=== PATIENT | male | born 1985 | race African-American/Black ===

== ENCOUNTER 2022-09-02 06:37 | Emergency (ER) | payer OTHER, SELFPAY ==
--- NOTE | ~2022-09-02 | XR_ITS ---
EXAMINATION: XR TOES, LEFT CLINICAL INFORMATION: Great toe injury COMPARISON: None available. TECHNIQUE: 3 views of the left toes were obtained. FINDINGS: There are no fractures or dislocations. No joint effusion is identified. No bone, joint or soft tissue abnormality is demonstrated. XR/XR toe LT min 2V IMPRESSION: Unremarkable examination.
[2022-09-02 06:38] VITALS: BP 136/79; PULSE 77; RESP 20; TEMP 36.5; O2SAT 95
[2022-09-02 07:06] VITALS: BMI 32.3
--- NOTE | 2022-09-02 08:51 | ED.WOUNDLAC ---
HPI - Wound/Laceration General Chief Complaint: Wound/Laceration Stated Complaint: toe inj Time Seen by Provider: 09/02/22 08:10 Source: patient Mode of arrival: ambulatory Limitations: no limitations History of Present Illness HPI narrative: 37-year-old male presents to the ER for evaluation a left great toe injury sustained this morning. Patient states he was outside in slide on sandals when he saw a skunk in close proximity. He back paddles and ended up injuring his left great toe, stomach get on the concrete. He states he was at open wound to the distal tip of the toe with bleeding and pain. A dressing was applied he was brought to the ER for further evaluation. Onset (ago): minute(s) Place: home Patient tetanus UTD: No Context: accidental Associated symptoms: pain Treatments prior to arrival: bandage Related Data Allergies Allergy/AdvReac Type Severity Reaction Status Date / Time No Known Allergies Allergy Verified 09/02/22 07:10 Review of Systems Review of Systems: Yes all other systems are reviewed and are negative [facility] Social History Social History Smoked in Last 30 Days: Yes Use of substances other than those prescribed or required for medical reasons: Yes Substance Use Type: Marijuana Advance Directives: No Advance Directives Information Provided: No Physical Exam Vital Signs: Vital Signs: Last Vital Signs Temp 97.7 F 09/02/22 06:38 Pulse 77 09/02/22 06:38 Resp 20 09/02/22 06:38 BP 136/79 09/02/22 06:38 Pulse Ox 95 09/02/22 06:38 O2 Del Method Room Air 09/02/22 06:38 BMI result Body Mass Index 32.3 Appearance: Alert. Oriented X3. No acute distress. HEENT: normal inspection CVS: Normal heart rate and rhythm. Pulses normal. Respiratory: No respiratory distress. Skin: Skin warm and dry. Normal skin color. Normal skin turgor. No rashes. Extremities: left great toe with 1.5 cm avulsion flap to the distal toe not involving the nail, no active bleeding, dried blood present. area is tender to palpation. no swelling or tenderness of the left foot/metatarsals Neuro: Oriented X 3. grossly normal, nonfocal Medical Decision Making Medical Decision Making MDM Narrative: 37-year-old male presents to the ER for evaluation of the left great toe injury after he stubbed it while outside this morning. Exam is consistent with a avulsion of skin that does not involve the nail. It is tender but not bleeding. Neurovascularly intact. He is not diabetic. X-ray today does not show any evidence of fracture. No need for antibiotics. Tetanus shot was provided. Local wound care was provided along with wound care instructions. Steri-Strip was used to reinforce the wound and allow appropriate wound healing. He is stable for discharge home. Differential Diagnosis Differential Diagnoses: The differential diagnosis associated with the presentation includes Avulsion injury, open fracture fall, simple laceration Independent Interpretation I performed an independent interpretation of an: Plain X-Ray Interpretation: No evidence of acute fracture, agree with radiologist read Radiology Impression Discussion of test interpretation with radiology: I have reviewed the radiologist's reading. Radiologist Impression: XR/XR toe LT min 2V IMPRESSION: Unremarkable examination. Prescription Management I considered prescription management with: Pain Medication and Antibiotic Discharge Plan Discharge Clinical Impression: Avulsion of skin Patient Disposition: Home, Self-Care Instructions: Skin Avulsion (ED) Additional Instructions: Your x-ray today was normal. Steri-Strips was used to keep the wound closed. Do not get wet for 24 hours. The Steri-Strips will come off on its own, usually within a week. Use bacitracin to the area to help prevent infection. Allow open to air. If you develop new or worsening symptoms call 911 or come back to the ER for further evaluation. Stand Alone Forms: Work/School Release
== END 2022-09-02 09:49 | disposition home or self-care (01) ==
PROVIDERS: Emergency Provider Student in an Organized Health Care Education/Training Program; PCP Internal Medicine
DX: S91.102A Unspecified open wound of left great toe without damage to nail, initial encounter (principal); W01.0XXA Fall on same level from slipping, tripping and stumbling without subsequent striking against object, initial encounter; Y93.9 Activity, unspecified; Y92.9 Unspecified place or not applicable; Y99.9 Unspecified external cause status
CPT/HCPCS: 12001; 73660; 99283; 99284

== ENCOUNTER 2022-11-16 17:56 | Emergency (ER) | payer OTHER, SELFPAY ==
--- NOTE | 2022-11-16 18:11 | ED_ITS ---
HPI - Dental/Oral General Chief complaint: Dental/Oral Stated complaint: Right side tooth pain Time Seen by Provider: 11/16/22 18:18 Source: patient, RN notes reviewed and old records reviewed Mode of arrival: ambulatory History of Present Illness HPI Narrative: 37 year old male w/no sig PMHx c/o lower right molar pain x6 months worsening today. Denies recent dental procedures, trauma, ear pain, fever, chills, drainage from ear, drainage from tooth. Admits was supposed to have wisdom teeth removed however canceled consultation years ago MD Complaint: tooth pain Related Data Previous Rx's Medication Instructions Recorded amoxicillin 875 mg-potassium 1 tab PO BID 7 days #14 tabs 11/16/22 clavulanate 125 mg tablet Allergies Allergy/AdvReac Type Severity Reaction Status Date / Time shellfish derived Allergy Vomiting Verified 11/16/22 18:12 Review of Systems Review of Systems: Constitutional: No Fever, No Chills ENT/Mouth: +dental pain, No Ear Pain, No Nasal Congestion, No sore throat, No Rhinorrhea, No Swallowing Difficulty Cardiovascular: No Chest Pain, No SOB Respiratory: No Cough Gastrointestinal: No Nausea, No Vomiting, No Abdominal pain Genitourinary: No Dysuria, No Urinary Frequency, No Hematuria, NNo Flank Pain Musculoskeletal: No joint pain, No Myalgias, No Joint Swelling Skin: No Skin Lesions, No rash Neuro: No Weakness Yes all other systems are reviewed and are negative Constitutional: Constitutional: Reports as per [facility] Past Medical History Attestation statement: The following information was validated with the patient. Source: old records reviewed Social History Social History Substance Use Type: Marijuana Advance Directives: No Advance Directives Information Provided: No Physical Exam Vital Signs: Vital Signs: Last Vital Signs Temp 99.3 F 11/16/22 18:12 Pulse 64 11/16/22 18:12 Resp 18 11/16/22 18:12 BP 135/79 11/16/22 18:12 Pulse Ox 98 11/16/22 18:12 O2 Del Method Room Air 11/16/22 18:12 BMI result Body Mass Index 32.5 Const: General: cooperative, healthy appearing and no acute distress Orientation/consciousness: patient oriented x3 Limitations: no limitations HEENT: Other: + bilateral lower posterior molar gingival inflammation greater on right with some tooth overgrowth. Tender to palpation to right. No erythema/fluctuance or induration. No active drainage. Head: Yes normal to inspection and Yes atraumatic Ears: hearing grossly normal bilaterally General nose exam: Normal external nose present Face and sinus: Yes normal facial exam Mouth: tongue normal and no drooling Throat: Yes posterior oropharynx normal, Yes tonsils normal and Yes uvula midline Eyes: General: appearance normal, both eyes and all related structures EOM: EOMs intact bilaterally Neck: Neck: Yes normal visual inspection and Yes no meningeal signs Resp: Effort & Inspection: normal respiratory effort and no respiratory distress Cardio: Rate: regular rate Skin: Rashes: no rashes Wounds: no wounds Neuro: General: patient oriented x3, tone normal and no meningeal signs Cranial nerves: Yes CN's II-XII intact bilaterally Gait exam (Neuro): Normal gait present Extrem: General: Yes normal to inspection Medical Decision Making Medical Decision Making MDM Narrative: 37 year old male w/no sig PMHx c/o lower right molar pain x6 months worsening today. Denies recent dental procedures, trauma, ear pain, fever, chills, drainage from ear, drainage from tooth. On exam VSS, NAD, nontoxic appearing, PE as above with right lower molar gingival ttp and inflammation. No flexion/induration or facial swelling. Patient likely needs dental extraction. Concerns for gingivitis/early dental infection. No evidence of abscess or need for I&D at this time Plan: PO Abx, Dentistry F/u Please refer to course for remaining clinical decision making, interpretation of labs/imaging results, and discussions with consultants and/or family members. Results discussed with patient including worrisome signs and symptoms and strict return precautions, and when to return to the emergency department. They verbalized understanding and feel safe for discharge at this time. Differential Diagnosis Differential Diagnoses: The differential diagnosis associated with the presentation includes As above External Record Review External record reviewed: Inpatient record, Office record, Outpatient record, Prior outpatient labs, Prior outpatient radiology, Primary care record and Outside ED record Tests considered The following testing was considered but not selected: As above Discharge Plan Discharge Clinical Impression: Chronic dental pain Patient Disposition: Home, Self-Care Instructions: Mouth Care (ED) Additional Instructions: Augmentin is an antibiotic please take as prescribed You need to follow up with product development technician If symptoms persist or worsen return to the ED Take Tylenol and Motrin as needed Prescriptions: New amoxicillin-pot clavulanate 875-125 mg tablet 1 tab PO BID 7 Days Qty: 14 0RF Referrals: Erik Briones MD [Physician] - David Lee DMD [Dentist] - Interventions: ED Discharge Assessment Last Done: 11/16/22 18:26 Discharge Date/Time: 11/16/22 18:26
[2022-11-16 18:12] VITALS: BP 135/79; PULSE 64; RESP 18; TEMP 37.4; O2SAT 98; BMI 32.5
== END 2022-11-16 18:26 | disposition home or self-care (01) ==
LOC: HO.ED 18:24
PROVIDERS: Emergency Provider Student in an Organized Health Care Education/Training Program; PCP Internal Medicine
DX: K08.89 Other specified disorders of teeth and supporting structures (principal)
CPT/HCPCS: 99282; 99283

== ENCOUNTER 2024-04-07 18:20 | Emergency (ER) | payer SELFPAY ==
[2024-04-07 18:46] VITALS: BP 158/87; PULSE 93; RESP 18; TEMP 37; O2SAT 98; BMI 37.9
--- NOTE | 2024-04-07 18:47 | ED.GENADULT ---
HPI - General Adult General Chief complaint: General Medical Stated complaint: cyst buttocks Time Seen by Provider: 04/07/24 21:41 History of Present Illness ED Provider: Priya JAIME narrative: The patient is a 38-year-old male who has had an area of painful swelling on his left perineum or buttock for about 3 days. He feels the pain and swelling has been getting worse and he came to the emergency room for evaluation tonight. No definite fevers. No vomiting. He has never had to come to an emergency room for something like this before. He has had lesser abscesses in the past however. Related Data Previous Rx's ?Medication ?Instructions ?Recorded amoxicillin 875 mg-potassium 1 tab PO BID 7 days #14 tabs 11/16/22 clavulanate 125 mg tablet amoxicillin 875 mg-potassium 1 tab PO BID #14 tabs 04/07/24 clavulanate 125 mg tablet ibuprofen 400 mg tablet 400 mg PO Q6H PRN pain #14 tabs 04/07/24 Allergies Allergy/AdvReac Type Severity Reaction Status Date / Time shellfish derived Allergy Vomiting Verified 04/08/24 15:08 Review of Systems Review of Systems: Yes all other systems are reviewed and are negative [facility] Social History Social History Substance Use Type: Marijuana Physical Exam ED Vital Signs: Vital Signs - 24 hr 04/07/24 18:46 04/07/24 22:31 04/07/24 22:50 Temperature 98.6 F 98.6 F 98.6 F Pulse Rate 93 91 91 Respiratory Rate 18 16 16 Blood Pressure 158/87 H 154/67 H 154/67 H Pulse Oximetry 98 97 97 Oxygen Delivery Method Room Air Room Air Room Air BMI result Body Mass Index 37.9 Const Other: the patient is a 38-year-old man who is awake and alert, pleasant cooperative. He does not seem acutely ill. Orientation/consciousness: patient oriented x3 HENMT Other: Face is symmetrical, mucous membranes moist. Eyes General: appearance normal, both eyes and all related structures Resp Effort & Inspection: normal respiratory effort Skin Other: there is an area of swelling and tenderness to the left of the perineal raphe. Neuro General: patient oriented x3 Cranial nerves: Yes CN's II-XII intact bilaterally Cognition (Neuro): normal cognition Motor exam (neuro): 5/5 motor strength present throughout Extrem Other: moving extremities normally Course Course Course Narrative: This is a rapid medical exam performed by Amanda Bennett NP: Additional HPI, ROS, PE not included below will be deferred to primary provider. Patient is a 38-year-old male presenting to the ED with complaint of abscess to left buttock for the past 3 days. Denies fever/chills/body aches but SO state he felt warm last night. She reports it is golf ball sized. Area not visualized in triage due to privacy concerns. Plan: labs Medications Administered Discontinued Medications Generic Name Dose Route Start Last Admin Trade Name Freq PRN Reason Stop Dose Admin Amoxicillin/Clavulanate Potassium 875 mg 04/07/24 22:17 04/07/24 22:34 Amoxicillin/Potassium Clav 875 Mg Tablet PO 04/07/24 22:18 875 mg ONCE ONE Administration Lidocaine HCl 5 ml 04/07/24 21:56 04/07/24 22:01 Lidocaine Hcl 1 % Mpf 5 Ml Vial INFILTRATI 04/07/24 21:57 5 ml ONCE ONE Administration Procedures Abscess I/D Site: sincere-rectal (to the left of the perineal raphe) Side (if applicable): left Local Anesthetic: lidocaine 1% Amount of anesthesia used (mL): 6 Technique: incised with blade Amount of fluid expressed (mL): 15 Sent for culture/gram staining?: No Irrigation: No Medical Decision Making Medical Decision Making MDM Narrative: The patient is a generally healthy 38-year-old male who presents with an abscess in the left perineum. I used the bedside ultrasound to confirm the presence of a pocket of fluid. I then performed an incision and drainage procedure of the abscess. The skin was prepped with Betadine. The skin over the abscess was anesthetized with 1% lidocaine using a 30 gauge needle. I made an incision with a 11. Blade with copious release of pus. After milking out as much pus as I could I then packed the abscess cavity with quarter-inch iodoform gauze. The patient tolerated the procedure well. He was started on Augmentin. He was given the contact information for the surgery office. Discharge Plan Discharge Clinical Impression: Abscess of perineum Patient Disposition: Home, Self-Care Instructions: Sitz Bath (DC), Rectal Abscess (ED), Abscess Incision and Drainage (DC) Additional Instructions: You have an abscess that was incised. A good amount of pus drained out of the abscess. Packing material has been placed in the abscess cavity to help allow ongoing drainage. You have been started on the antibiotic Augmentin. Please take this 2 times a day, approximately every 12 hours. A prescription for ibuprofen has been sent to your pharmacy which you may use every 6 hours as for discomfort. You may also use acetaminophen (Tylenol). You may take 2 extra-strength acetaminophen up to 3 times per day. Please contact the surgical office in the morning. My hope is that you will get an appointment on Friday or Friday for a follow up. They will likely remove the packing at the appointment and give you additional instructions. Packing may fall out on its own. Packing falls out on its own you may do Sitz baths several times a day. You do this by filling the bottom of a bathtub with a few inches of fairly warm water and sitting in the warm water for about 10 minutes. Contact your regular doctor if you have any additional questions. Return to the emergency room if significantly worse. Prescriptions: New amoxicillin-pot clavulanate 875-125 mg tablet 1 tab PO BID Qty: 14 0RF ibuprofen 400 mg tablet 400 mg PO Q6H PRN (Reason: pain) Qty: 14 0RF No Action amoxicillin-pot clavulanate 875-125 mg tablet 1 tab PO BID 7 Days Qty: 14 0RF [place] [facility] [place] Group] (perineal/perianal/gluteal abscess) Stand Alone Forms: Work/School Release Interventions: ED Discharge Assessment Last Done: 04/07/24 22:50 Discharge Date/Time: 04/07/24 22:51 Print Language: Khmer
[2024-04-07] MEDS: Lidocaine HCl 1 % MPF 5 ML VIAL INFILTRATI (22:01)
[2024-04-07 22:31] VITALS: BP 154/67; PULSE 91; RESP 16; TEMP 37; O2SAT 97
[2024-04-07] MEDS: Amoxicillin/Potassium Clav 875 MG TABLET PO (22:34)
[2024-04-07 22:50] VITALS: BP 154/67; PULSE 91; RESP 16; TEMP 37; O2SAT 97
== END 2024-04-07 22:51 | disposition home or self-care (01) ==
PROVIDERS: Emergency Provider Emergency Medicine; PCP Internal Medicine
DX: L02.31 Cutaneous abscess of buttock (principal)
CPT/HCPCS: 10060; 99283; 99284; J2003

== ENCOUNTER 2024-04-08 14:59 | Outpatient (AMB) | payer SELFPAY ==
--- NOTE | 2024-04-08 14:57 | MHC.OFFVIS ---
Vital Signs 04/08/24 15:06 Height 6 ft Weight 273 lb 13.026 oz BMI 37.1 Respiration 16 Pulse 90 Intake Visit Reasons: Rectal abscess Intake Note: Patient is seen in office for ER follow up visit, following rectal abscess. Pt c/o: onset for about 3 days, admits to pain and discharge, started antbx yesterday, had one in the past under the right axilla which resolved on its own Foreman/Pile Driving And Erection Required: No Accompanied by: Self / Same As Patient Allergies shellfish derived Allergy (Verified 04/08/24 15:08) Vomiting Medication List - Last Reconciled 04/08/24 by David Payton MD amoxicillin-pot clavulanate 875-125 mg 1 tab PO BID 7 days amoxicillin-pot clavulanate 875-125 mg 1 tab PO BID ibuprofen 400 mg PO Q6H PRN HPI Comments Details: 38-year-old male patient presenting for ER follow-up after incision and drainage of a perirectal abscess. He denies a previous history of perirectal abscess. He reports using a new soap and feels this may have started the infection. The infection developed over 3 day period and developed into a large lump. He was subsequently seen in the emergency department on 04/07/2024. He underwent incision and drainage of a large abscess. Packing was placed as well. He reports improvement in his pain and continued discharge. He denies any chills but has had a slight fever at night. Overall he feels much improved. [facility] Social History Substance Use Type: Marijuana Review of Systems Const All systems reviewed & are unremarkable except as noted in HPI and below Physical Exam Vital Signs: Last Vital Signs Pulse 90 04/08/24 15:06 Resp 16 04/08/24 15:06 BMI result Body Mass Index 37.1 Const General: cooperative and no acute distress Nutritional Appearance: well nourished Orientation/consciousness: patient oriented x3 Limitations: no limitations HEENT Head: Yes normocephalic and Yes atraumatic Ears: hearing grossly normal bilaterally Resp Effort & Inspection: normal respiratory effort, no audible wheezes, no cough and no respiratory distress Cardio Jugular venous distension: no JVD GI Inspection: Yes normal to inspection Back/Spine/Pelvis Other: Incision and drainage site is clean and intact. The packing was removed and mainly bloody discharge noted. No surrounding erythema is appreciated and no undrained abscess could be identified. Skin Other: Warm, dry, no rash Neuro General: patient oriented x3 Extrem General: Yes no clubbing, cyanosis or edema Assessment & Plan Assessment & Plan (1) Abscess of perineum: Code(s): L02.215 - Cutaneous abscess of perineum Category: Medical Plan 38-year-old male patient status post incision and drainage of a perirectal abscess. He is much improved and the packing was removed today. I recommended continued warm soaks either in the shower or tub. He should continue to apply a dry dressing until the discharge as stopped. He is welcome to return should the pain return. Coding Level of Care Code New Pt Level 4 (00774) Diagnoses Abscess of perineum L02.215
[2024-04-08 15:06] VITALS: PULSE 90; RESP 16; BMI 37.1
== END 2024-04-08 15:42 | disposition home or self-care (01) ==
PROVIDERS: PCP Internal Medicine; Visit Provider Surgery
DX: L02.215 Cutaneous abscess of perineum (principal)
CPT/HCPCS: 99204

== ENCOUNTER → 2024-04-08 14:59 | Outpatient (BNVA) | payer SELFPAY | PROVIDERS: PCP Internal Medicine; Visit Provider Surgery | DX: L02.215 Cutaneous abscess of perineum (principal); Z98.890 Other specified postprocedural states | CPT/HCPCS: 99202 ==